=== PATIENT | male | born 1950 | race Caucasian/White ===

== ENCOUNTER 2020-12-31 07:55 | Emergency (ER) | payer OTHER ==
[2020-12-31 08:32] LABS: Absolute Lymphocytes (CBC) 1.2 K/uL (0.7-4.9); Basophils % 0.2 % (0-1.3); Lymphocytes % 6.7 % (15.3-44.8); MPV 8.3 fL (7.6-11.3); RBC Red Blood Cell Count 3.51 M/uL (4.33-5.43)
[2020-12-31] MEDS ORDERED: ONDANSETRON 4 MG/2 ML VIAL ONE (08:37)
[2020-12-31] MEDS ORDERED: NA CHLORIDE 0.9% 2,000 ML ONE (08:37)
[2020-12-31] MEDS ORDERED: MORPHINE 4 MG/ML SYR ONE (08:37)
[2020-12-31 08:47] LABS: BUN Blood Urea Nitrogen 9 mg/dL (7-18); Bicarbonate 20 mmol/L (21-32); Creatine Phosphokinase 36 U/L (39-308); Glucose Level 322 mg/dL (74-106); NT PRO-BNP 1267 pg/mL (<125); Potassium 4.1 mmol/L (3.5-5.1); Sodium Level 133 mmol/L (136-145); Troponin (Emerg Dept Use Only) < 0.02 ng/mL (0.0-0.045)
[2020-12-31 08:48] LABS: CKMB Creatine Kinase MB < 1.0 ng/mL (1.0-3.6)
[2020-12-31 08:52] LABS: Protime INR 1.56
[2020-12-31] MEDS ORDERED: carvediloL 6.25 MG TAB ONE (09:13)
[2020-12-31] MEDS ORDERED: MAGNESIUM SULFATE 1 gm IVPB 1 GM/100 ML BAG IV ONE (09:28)
[2020-12-31 10:01] LABS: Urine Blood 1+ (Negative); Urine Glucose Negative (Negative); Urine Protein 3+ (Negative); Urine pH 8.5 (5.0-7.0)
[2020-12-31] MEDS ORDERED: NA CHLORIDE 0.9% 100 ML ONE (10:04)
[2020-12-31] MEDS ORDERED: PIPERACIL/TAZO 3.375 GM VIAL IV ONE (10:04)
--- NOTE | 2020-12-31 10:06 | RAD REPORT ---
EXAM DESCRIPTION: [place] Single View12/31/2020 8:43 am CLINICAL HISTORY: Shortness of breath COMPARISON: 2017 FINDINGS: Large right lung mass with atelectasis. Right rib bone destruction. Left lung appears clear
--- NOTE | 2020-12-31 10:06 | RAD REPORT ---
EXAM DESCRIPTION: CT - Chest For Pe Angio - 12/31/2020 9:17 am CLINICAL HISTORY: Chest pain COMPARISON: None. TECHNIQUE: Dynamically enhanced axial 3 mm thick images of the chest were obtained during administra tion of <100> mL Isovue 370 IV contrast. Coronal and oblique reconstruction images were generated and reviewed. Exam utilizes a protocol for optimal evaluation of pulmonary arterial tree. Maximum intensity projections 3D imaging was utilized All CT scans are performed using dose optimization technique as appropriate and may include automated exposure control or mA/KV adjustment according to patient size. FINDINGS: A pulmonary embolus is not seen. A thoracic aortic aneurysm is not noted. Small to moderate right pleural effusion Large mass occupies the mid and lower right lung. The mass extends into the posterior mediastinum and right hilum. Right rib destruction is noted. The mass extends through the right lateral chest wall. Right lower lobe bronchus is occluded resulting in atelectasis. Right pulmonary arteries are encased by the mass. COPD IMPRESSION: Negative for a pulmonary embolism. Large mass occupies the mid and lower right lung. The mass extends into the posterior mediastinum and right hilum. Right rib destruction is noted. The mass extends through the right lateral chest wall. Right lower lobe bronchus is occluded resulting in atelectasis.
[2020-12-31] MEDS ORDERED: NA CHLORIDE 0.9% 1,000 ML ONE ×2 (10:30→12:51)
[2020-12-31 10:51] LABS: Anisocytosis 1+; Blood Morphology Comment NOTED (NOT SEEN); Macrocytosis SLIGHT; Platelet Estimate INCR; White Blood Cell Scan OK (OK)
[2020-12-31 10:59] LABS: Urine Bacteria <20 /HPF (NONE SEEN); Urine Mucus 2+ /HPF (NONE SEEN); Urine Urothelial Cells <5 /HPF (NONE SEEN)
[2020-12-31] MEDS ORDERED: AMIODARONE HCL 150 MG in D5W 100 ML IV SCH (11:45)
[2020-12-31] MEDS ORDERED: AMIODARONE HCL 900 MG in Dextrose 5%-Water 482 ML IV SCH (12:00)
--- NOTE | 2020-12-31 14:07 | EDPHYS ---
Physician Documentation [facility] Name: Jose Doherty Age: 70 yrs Sex: Male : 1950 Arrival Date: 12/31/2020 Time: 07:57 Bed 4 Private MD: ED Physician Keagan Lizama HPI: 12/31 08:00 This 70 yrs old Male presents to ER via Unassigned with complaints of Chest rn pain and shortness of breath. 08:00 The patient has shortness of breath at rest. Onset: The symptoms/episode began/occurred rn this morning. Duration: The symptoms are continuous. The patient's shortness of breath is aggravated by coughing, supine position, talking, is alleviated by nothing. Associated signs and symptoms: Pertinent positives: chest pain, non-productive cough, Pertinent negatives: fever, hemoptysis, loss of consciousness. Severity of symptoms: At their worst the symptoms were moderate in the emergency department the symptoms are unchanged. The patient has experienced similar episodes in the past. It is unknown whether or not the patient has recently seen a physician. Per EMS report patient with metastatic lung cancer, family states was considering putting him on hospice beginning tomorrow, increased shortness of breath and chest pain that began this morning so called 911. Patient reports pain feels like his pain that he has been having with the cancer only a little worse. No fever. No history of DVT or PE. Is seen at [facility].. Historical: - Allergies: 08:57 No Known Allergies; ll1 - PMHx: 08:20 lung CA with mets; ll1 08:57 Anemia; hypomagnesemia; Hypothyroidism; Sleep apnea; ll1 08:59 Diabetes mellitus; ll1 - Immunization history:: Adult Immunizations up to date. - Social history:: Smoking status: Patient/guardian denies using tobacco. - Family history:: not pertinent. - Hospitalizations: : No recent hospitalization is reported. ROS: 08:00 Constitutional: Negative for fever, chills Eyes: Negative for injury, pain, redness, rn and discharge, Neck: Negative for injury, pain, and swelling, Cardiovascular: Positive for chest pain Respiratory: Positive for shortness of breath and cough Abdomen/GI: Negative for abdominal pain, nausea, vomiting, diarrhea, and constipation, Back: Negative for injury and pain, : Patient states feels like needs to urinate but cannot MS/Extremity: Negative for injury and deformity, Skin: Negative for injury, rash, and discoloration, Neuro: Positive for generalized weakness 08:00 All other systems are negative. Exam: 08:00 Constitutional: Thin male, cachectic, tachypneic Head/Face: Normocephalic, rn atraumatic. Eyes: Sunken eyes. Periorbital areas with no swelling, redness, or edema. ENT: Dry mucous membranes Cardiovascular: Tachycardic, irregular Respiratory: Moderate tachypnea with diminished breath sounds at bases Abdomen/GI: Soft, nontender, scaphoid Skin: Warm, dry MS/ Extremity: Pulses equal, no cyanosis. Neuro: Awake, somnolent, GCS 15, oriented to person place and situation. Moves all 4 extremities. 08:04 ECG was reviewed by the Attending Physician. rn Vital Signs: 08:23 BP 142 / 127; Pulse 173; Resp 21; Pain 10/10; ll1 08:46 Temp 96.3(R); ap3 08:47 Pulse Ox 100% ; ll1 08:57 Weight 70.31 kg; Height 5 ft. 9 in. (175.26 cm); ll1 08:59 BP 165 / 134; Pulse 166; Resp 22; ll1 09:30 BP 84 / 56; Pulse 161; Resp 22; Pulse Ox 100% on 3.5 lpm NC; ll1 09:32 BP 100 / 62; ll1 09:42 BP 82 / 57; ll1 09:53 BP 90 / 53; Pulse 157; Resp 20; Pulse Ox 96% on 3.5 lpm NC; ll1 10:16 BP 98 / 58; Pulse 146; Resp 20; Pulse Ox 98% ; ll1 10:20 Temp 96.4(TE); ll1 10:25 BP 80 / 63; Pulse 145; Resp 19; Pulse Ox 100% on 3.5 lpm NC; ll1 10:35 BP 99 / 65; Pulse 164; Resp 19; Pulse Ox 100% ; ll1 10:48 BP 101 / 70; Pulse 153; Resp 18; Pulse Ox 99% on 3.5 lpm NC; ll1 11:08 BP 95 / 72; Pulse 163; Resp 18; Pulse Ox 100% on 3.5 lpm NC; ll1 11:12 Temp 96.3(TE); ll1 11:43 BP 109 / 85; Pulse 163; Resp 17; ll1 11:59 Temp 96.6(TE); ll1 12:00 BP 122 / 80; Pulse 116; Resp 18; Pulse Ox 100% ; ll1 13:13 BP 119 / 82; Pulse 111; Resp 21; Pulse Ox 100% on 3.5 lpm NC; ll1 13:45 BP 121 / 82; Pulse 110; Resp 18; Pulse Ox 100% on 2 lpm NC; ll1 13:50 Pulse 109; Resp 17; Temp 97.4; Pulse Ox 100% ; ll1 14:32 BP 125 / 90; Pulse 113; Resp 18; Pulse Ox 100% ; ll1 14:49 BP 112 / 70; Pulse 114; Resp 17; Pulse Ox 100% ; ll1 15:29 BP 127 / 87; Pulse 111; Resp 17; Pulse Ox 100% ; ll1 16:20 BP 116 / 79; Pulse 113; Resp 17; Temp 97.3; Pulse Ox 100% on 3.5 lpm NC; Pain 4/10; ll1 16:32 BP 129 / 87; Resp 17; ll1 08:57 Body Mass Index 22.89 (70.31 kg, 175.26 cm) [facility] 09:42 Dr. Lizama informed of low BP. IV fluids and magnesium infusing. [facility] 12:00 Rhythm converted to sinus tach. Dr. Lizama informed. EKG done. [facility] MDM: 07:57 Patient medically screened. rn 08:32 ED course: Family member not sure if has a history of atrial fibrillation, but states rn recently taken off of his amlodipine as well as his Coreg due to low blood pressure. Patient is oriented and states he wishes to remain full code, family without any documentation stating otherwise. 09:47 ED course: Patient feels improved, increased energy and more movement. rn 11:29 ED course: Patient persistently tachycardic, borderline blood pressure, most of visit rn has been hypotensive, not enough room for rate control using typical drugs, maintains heart rate 150s 160s, overall feels better, but needs rate control will try amiodarone given borderline blood pressure.. 12:03 ED course: Prior to administration of amiodarone, patient attempted to reposition in rn bed and cardioverted back to sinus rhythm. Now sinus tachycardia with improved blood pressure. Appears much better.. 12:22 ED course: Family requests transfer to [facility] given all his doctors rn are there and his oncologist there. Will attempt transfer, if unable to will admit here. 14:04 Differential diagnosis: CHF exacerbation, Myocardial Infarction pneumonia, Pneumothorax rn pulmonary edema, Pulmonary Embolism New onset atrial fibrillation, dehydration. Data reviewed: vital signs, nurses notes, lab test result(s), EKG, radiologic studies, CT scan, plain films, and as a result, I will admit patient. Data interpreted: athletic monitor: rate is 109 beats/min, rhythm is sinus tachycardia, with no ectopy, Interpretation: tachycardia, Pulse oximetry: on 2L(s) per nasal canula, is 100 %. Interpretation: acceptable. Counseling: I had a detailed discussion with the patient and/or guardian regarding: the historical points, exam findings, and any diagnostic results supporting the discharge/admit diagnosis, lab results, radiology results, the need for further work-up and treatment in the hospital. Response to treatment: the patient's symptoms have markedly improved after treatment, and as a result, I will admit patient. Admission orders: after a detailed discussion of the patient's condition and case, the admit orders are written by me. ED course: Patient markedly improved. Family no patient aware of history of atrial fibrillation. Will admit for further care. Patient very dehydrated. Attempted transfer back to [facility] as well as [facility] for continuation of care and there are no beds available. Will admit here.. 14:44 ED course: Transfer center unable to get Dr. Esquivel on phone for doc-to-doc, but states rn accepts transfer. . 12/31 07:59 Order name: BMP rn 12/31 07:59 Order name: Blood Culture Adult (2) rn 12/31 07:59 Order name: CBC with Diff; Complete Time: 12:25 rn 12/31 07:59 Order name: CPK; Complete Time: 08:49 rn 12/31 07:59 Order name: Ckmb; Complete Time: 08:49 rn 12/31 07:59 Order name: NT PRO-BNP; Complete Time: 08:49 rn 12/31 07:59 Order name: PT-INR; Complete Time: 10:03 rn 12/31 07:59 Order name: Ptt, Activated; Complete Time: 10:03 rn 12/31 07:59 Order name: Troponin (emerg Dept Use Only); Complete Time: 08:49 rn 12/31 07:59 Order name: Lactate; Complete Time: 10:03 rn 12/31 07:59 Order name: Procalcitonin; Complete Time: 10:03 rn 12/31 08:00 Order name: Basic Metabolic Panel; Complete Time: 08:49 EDMS 12/31 08:03 Order name: Urine Culture rn 12/31 07:59 Order name: XRAY CXR (1 view); Complete Time: 10:11 rn 12/31 08:03 Order name: Urine Microscopic Only; Complete Time: 12:25 rn 12/31 08:49 Order name: CT Chest For PE Angio; Complete Time: 10:11 rn 12/31 09:22 Order name: SARS-COV-2 RT PCR; Complete Time: 10:03 EDMS 12/31 10:01 Order name: Urine Dipstick-Ancillary; Complete Time: 10:03 EDMS 12/31 10:51 Order name: CBC Smear Scan; Complete Time: 12:25 EDMS 12/31 12:05 Order name: Lactate Sepsis 2 HR Follow-up; Complete Time: 12:25 EDMS 12/31 07:59 Order name: EKG; Complete Time: 08:00 rn 12/31 07:59 Order name: Cardiac monitoring; Complete Time: 08:09 rn 12/31 07:59 Order name: EKG - Nurse/Tech; Complete Time: 08:09 rn 12/31 07:59 Order name: IV Saline Lock; Complete Time: 08:09 rn 12/31 07:59 Order name: Labs collected and sent; Complete Time: 08:09 rn 12/31 07:59 Order name: O2 Per Protocol; Complete Time: 08:09 rn 12/31 07:59 Order name: O2 Sat Monitoring; Complete Time: 08:09 rn 12/31 08:03 Order name: Urine Dipstick-Ancillary (obtain specimen); Complete Time: 08:08 rn 12/31 08:18 Order name: Glucose Level; Complete Time: 10:22 rn 12/31 08:18 Order name: Munoz; Complete Time: 08:21 rn 12/31 08:48 Order name: Faraz Donahue; Complete Time: 08:56 rn EC:04 Rate is 178 beats/min. Rhythm is irregularly irregular. QRS is positive in lead I and rn negative in lead aVF. QRS interval is normal. QT interval is normal. No Q waves. T waves are Normal. No ST changes noted. Clinical impression: Atrial Fibrillation. Interpreted by me. Reviewed by me. Administered Medications: 08:25 Drug: NS 0.9% 1000 ml Route: IV; Rate: 1000 ml; Site: left antecubital; ll1 10:22 Follow up: Response: No adverse reaction; IV Status: Completed infusion; IV Intake: ll1 1000ml 08:25 Drug: morphine 4 mg {Note: rass -1.} Route: IVP; Site: left antecubital; ll1 09:30 Follow up: Response: No adverse reaction [facility] 08:25 Drug: Zofran (Ondansetron) 4 mg Route: IVP; Site: left antecubital; ll1 10:22 Follow up: Response: No adverse reaction [facility] 08:55 Drug: Coreg (carvedilol) 6.25 mg Route: PO; ap3 10:22 Follow up: Response: No adverse reaction [facility] 08:56 Drug: NS 0.9% 1000 ml Route: IV; Rate: 1000 ml; Site: right antecubital; ap3 10:23 Follow up: Response: No adverse reaction; IV Status: Completed infusion; IV Intake: ll1 1000ml 09:29 Drug: Magnesium Sulfate 1 grams Route: IVPB; Infused Over: 1 hrs; Site: left ll1 antecubital; 10:22 Follow up: Response: No adverse reaction; IV Status: Completed infusion; IV Intake: ll1 100ml 09:53 Drug: Zosyn (piperacillin-tazobactam) 3.375 grams Route: IVPB; Infused Over: 60 mins; ll1 Site: right antecubital; 11:42 Follow up: Response: No adverse reaction; IV Status: Completed infusion; IV Intake: ll1 100ml 10:15 Drug: NS 0.9% 1000 ml Route: IV; Rate: 1000 ml; Site: left antecubital; ll1 11:42 Follow up: Response: No adverse reaction; IV Status: Completed infusion; IV Intake: ll1 1000ml 12:11 Not Given (convertedd): amiodarone 150 mg 100 ml IVPB once over 10 mins; (mix in D5W) ll1 12:11 Not Given (convertedd): amiodarone 900 mg, D5W 500 ml IVPB at 1 mg/min continuous; for ll1 6 hrs, then change to 0.5 mg/min Disposition: 14:04 Critical Care:. rn Disposition Summary: 12/31/20 14:43 Transfer Ordered Transfer Location: [facility] rn Reason: Higher level of care rn Condition: Stable(12/31/20 14:43) rn Problem: new(12/31/20 14:43) rn Symptoms: have improved(12/31/20 14:43) rn Accepting Physician: Dr. Esquivel(12/31/20 16:32) ll1 Diagnosis - Persistent atrial fibrillation(12/31/20 14:43) rn - Chest pain, unspecified(12/31/20 14:43) rn - Dehydration(12/31/20 14:43) rn Forms: - Medication Reconciliation Form rn - SBAR form burner shaft time excluding procedures: 14:04 Critical care time: Bedside Care: 35 minutes, Family Intervention: 5 minutes. Total rn time: 40 minutes Signatures: Dispatcher [employer] EDMS Keagan Lizama MD MD rn Prokisch, Amanda, RN RN [email or web address] Nikki Cuevas, RN RN ll1 Corrections: (The following items were deleted from the chart) 08:30 08:00 CORONAVIRUS+ ordered. EDGA EDMS 08:59 08:20 Allergies: No Known Allergies; ll1 ll1 08:59 08:57 Allergies: anemia; ll1 ll1 14:43 14:07 Observation rn rn 14:43 14:07 Sonny Agee rn rn 14:43 14:07 Telemetry/MedSurg (observation) rn rn 14:43 14:07 Stable rn rn 14:43 14:07 new rn rn 14:43 14:07 have improved rn rn 14:43 14:07 Standard rn rn 14:43 14:07 rn rn 14:43 14:07 Persistent atrial fibrillation rn rn 14:43 14:07 Chest pain, unspecified rn rn 14:43 14:07 Dehydration rn rn 16:32 14:43 Dr. Esquivel rn ll1
--- NOTE | 2020-12-31 14:07 | ER ---
Nurse's Notes [facility] Name: Jose Doherty Age: 70 yrs Sex: Male : 1950 Arrival Date: 12/31/2020 Time: 07:57 Bed 4 Private MD: Diagnosis: Persistent atrial fibrillation;Chest pain, unspecified;Dehydration Presentation: 12/31 08:23 Chief complaint: Patient states: SOB for a few days. Has pain all over. Reports unable ll1 to urinate and bladder pain. AMS off/on. Reports weakness with fall yesterday. EMS states: 95% with long O2 tubing, BP low (unable to obtain). Lung CA with mets. Was going to be put on hospice this week. HR 170's. Coronavirus screen: Client denies travel out of the [place] in the last 14 days. difficulty breathing, shortness of breath. Ebola Screen: Patient denies travel to an Ebola-affected area in the 21 days before illness onset. Initial Sepsis Screen: Does the patient meet any 2 criteria? RR > 20 per min. Systolic BP < 90 mmHg. Altered Mental Status. HR > 90 bpm. Yes Does the patient have a suspected source of infection? No. Patient's initial sepsis screen is negative. Risk Assessment: Do you want to hurt yourself or someone else? Patient reports no desire to harm self or others. Onset of symptoms was December 28, 2020. 08:23 Method Of Arrival: EMS ll1 08:23 Acuity: DEANNA 2 ll1 Historical: - Allergies: 08:57 No Known Allergies; ll1 - PMHx: 08:20 lung CA with mets; ll1 08:57 Anemia; hypomagnesemia; Hypothyroidism; Sleep apnea; ll1 08:59 Diabetes mellitus; ll1 - Immunization history:: Adult Immunizations up to date. - Social history:: Smoking status: Patient/guardian denies using tobacco. - Family history:: not pertinent. - Hospitalizations: : No recent hospitalization is reported. Screenin:26 Abuse screen: Denies threats or abuse. Nutritional screening: No deficits noted. ll1 Tuberculosis screening: No symptoms or risk factors identified. Fall Risk Fall in past 12 months (25 points). Secondary diagnosis (15 points) impaired mobility, IV access (20 points). Ambulatory Aid- None/Bed Rest/Nurse Assist (0 pts). Gait- Weak (10 pts.). Mental Status- Overestimates/Forgets Limitations (15 pts.). Total Leonard Fall Scale indicates High Risk Score (45 or more points). Fall prevention measures have been instituted. Side Rails Up X 2 Placed Close to Nursing Station 1:1 Attendant Assigned Frequent Obs/Assessments Occuring Family Present and informed to notify staff if the need to leave the bedside As available patient and family educated on Fall Prevention Program and Strategies. Assessment: 08:27 General: Appears ill, Behavior is cooperative, appropriate for age, listless. Pain: ll1 Complains of pain in all over Quality of pain is described as aching, Aggravated by increased activity. Neuro: Level of Consciousness is alert, obeys commands, lethargic, Oriented to person, Hot Mill Supervisor are weak bilaterally Weakness Reports weakness. Cardiovascular: Heart tones S1 S2 present Capillary refill < 3 seconds Clubbing of nail beds is absent Patient's skin is warm and dry. Pulses are all present. Edema is 2+ to left ankle, left foot, right ankle and right foot Rhythm is atrial fibrillation with rapid ventricular response. Respiratory: Reports shortness of breath at rest Airway is patent Trachea midline Respiratory effort is even, labored, Respiratory pattern is symmetrical, tachypnea Breath sounds are diminished bilaterally. Onset: The symptoms/episode began/occurred 3 days, the patient has moderate shortness of breath. GI: No deficits noted. Abdomen is flat, Bowel sounds present X 4 quads. Abd is soft and non tender X 4 quads. : Urine is clear, Reports inability to void. Musculoskeletal: Circulation, motion, and sensation intact. Capillary refill < 3 seconds, Range of motion: intact in all extremities, Swelling present in right leg and left leg Reports. 09:30 Reassessment: No changes from previously documented assessment. Patient and/or family ll1 updated on plan of care and expected duration. Pain level reassessed. 10:30 Reassessment: No changes from previously documented assessment. Patient and/or family ll1 updated on plan of care and expected duration. Pain level reassessed. Patient is alert, oriented x 3, equal unlabored respirations, skin warm/dry/pink. 11:30 Reassessment: No changes from previously documented assessment. Patient and/or family ll1 updated on plan of care and expected duration. Pain level reassessed. 12:30 Reassessment: No changes from previously documented assessment. Patient and/or family ll1 updated on plan of care and expected duration. Pain level reassessed. Patient states feeling better. 13:30 Reassessment: No changes from previously documented assessment. Patient and/or family ll1 updated on plan of care and expected duration. Pain level reassessed. Resting, eyes closed. 14:31 Reassessment: No changes from previously documented assessment. Patient and/or family ll1 updated on plan of care and expected duration. Pain level reassessed. admission doctor at bedside. 15:31 Reassessment: No changes from previously documented assessment. Patient and/or family ll1 updated on plan of care and expected duration. Pain level reassessed. Patient is alert, oriented x 3, equal unlabored respirations, skin warm/dry/pink. Patient states feeling better. Patient states symptoms have improved. Vital Signs: 08:23 BP 142 / 127; Pulse 173; Resp 21; Pain 10/10; ll1 08:46 Temp 96.3(R); ap3 08:47 Pulse Ox 100% ; ll1 08:57 Weight 70.31 kg; Height 5 ft. 9 in. (175.26 cm); ll1 08:59 BP 165 / 134; Pulse 166; Resp 22; ll1 09:30 BP 84 / 56; Pulse 161; Resp 22; Pulse Ox 100% on 3.5 lpm NC; ll1 09:32 BP 100 / 62; ll1 09:42 BP 82 / 57; ll1 09:53 BP 90 / 53; Pulse 157; Resp 20; Pulse Ox 96% on 3.5 lpm NC; ll1 10:16 BP 98 / 58; Pulse 146; Resp 20; Pulse Ox 98% ; ll1 10:20 Temp 96.4(TE); ll1 10:25 BP 80 / 63; Pulse 145; Resp 19; Pulse Ox 100% on 3.5 lpm NC; ll1 10:35 BP 99 / 65; Pulse 164; Resp 19; Pulse Ox 100% ; ll1 10:48 BP 101 / 70; Pulse 153; Resp 18; Pulse Ox 99% on 3.5 lpm NC; ll1 11:08 BP 95 / 72; Pulse 163; Resp 18; Pulse Ox 100% on 3.5 lpm NC; ll1 11:12 Temp 96.3(TE); ll1 11:43 BP 109 / 85; Pulse 163; Resp 17; ll1 11:59 Temp 96.6(TE); ll1 12:00 BP 122 / 80; Pulse 116; Resp 18; Pulse Ox 100% ; ll1 13:13 BP 119 / 82; Pulse 111; Resp 21; Pulse Ox 100% on 3.5 lpm NC; ll1 13:45 BP 121 / 82; Pulse 110; Resp 18; Pulse Ox 100% on 2 lpm NC; ll1 13:50 Pulse 109; Resp 17; Temp 97.4; Pulse Ox 100% ; ll1 14:32 BP 125 / 90; Pulse 113; Resp 18; Pulse Ox 100% ; ll1 14:49 BP 112 / 70; Pulse 114; Resp 17; Pulse Ox 100% ; ll1 15:29 BP 127 / 87; Pulse 111; Resp 17; Pulse Ox 100% ; ll1 16:20 BP 116 / 79; Pulse 113; Resp 17; Temp 97.3; Pulse Ox 100% on 3.5 lpm NC; Pain 4/10; ll1 16:32 BP 129 / 87; Resp 17; ll1 08:57 Body Mass Index 22.89 (70.31 kg, 175.26 cm) ll1 09:42 Dr. Lizama informed of low BP. IV fluids and magnesium infusing. ll1 12:00 Rhythm converted to sinus tach. Dr. Lizama informed. EKG done. ll1 ED Course: 07:57 Patient arrived in ED. rn 07:57 Keagan Lizama MD is Attending Physician. rn 08:00 Inserted saline lock: 20 gauge in left antecubital area, using aseptic technique. Blood ll1 collected. 08:08 Nikki Cuevas, RN is Primary Nurse. ll1 08:15 Inserted saline lock: 20 gauge in right antecubital area, using aseptic technique. ll1 Blood collected. 08:26 Triage completed. ll1 08:26 Arm band placed on. ll1 08:26 Patient has correct armband on for positive identification. Bed in low position. Call ll1 light in reach. Side rails up X2. quality assurance monitor final on. Pulse ox on. NIBP on. 08:43 XRAY CXR (1 view) In Process Unspecified. EDMS 09:17 CT Chest For PE Angio In Process Unspecified. EDMS 10:14 Urine Culture Sent. cs9 10:14 Urine Microscopic Only Sent. cs9 12:01 Urine collected: Munoz catheter specimen, cloudy, EKG done, by ED staff, reviewed by Josette Lizama MD COVID swab sent to lab. 12:02 BMP Sent. [facility] 12:02 Blood Culture Adult (2) Sent. [facility] 13:34 initiated transfer to [facility], pt was declined due to no beds at [facility] or [facility]. 14:06 Sonny Agee MD is Hospitalizing Provider. rn 15:18 pt accepted in transfer to [facility], admin approval given by Rusty Red. Pt accepted by Dr Price. 15:56 No provider procedures requiring assistance completed. Patient transferred, IV remains ll1 in place. Administered Medications: 08:25 Drug: NS 0.9% 1000 ml Route: IV; Rate: 1000 ml; Site: left antecubital; ll1 10:22 Follow up: Response: No adverse reaction; IV Status: Completed infusion; IV Intake: ll1 1000ml 08:25 Drug: morphine 4 mg {Note: rass -1.} Route: IVP; Site: left antecubital; ll1 09:30 Follow up: Response: No adverse reaction ll1 08:25 Drug: Zofran (Ondansetron) 4 mg Route: IVP; Site: left antecubital; ll1 10:22 Follow up: Response: No adverse reaction ll1 08:55 Drug: Coreg (carvedilol) 6.25 mg Route: PO; ap3 10:22 Follow up: Response: No adverse reaction 1 08:56 Drug: NS 0.9% 1000 ml Route: IV; Rate: 1000 ml; Site: right antecubital; ap3 10:23 Follow up: Response: No adverse reaction; IV Status: Completed infusion; IV Intake: ll1 1000ml 09:29 Drug: Magnesium Sulfate 1 grams Route: IVPB; Infused Over: 1 hrs; Site: left ll1 antecubital; 10:22 Follow up: Response: No adverse reaction; IV Status: Completed infusion; IV Intake: ll1 100ml 09:53 Drug: Zosyn (piperacillin-tazobactam) 3.375 grams Route: IVPB; Infused Over: 60 mins; ll1 Site: right antecubital; 11:42 Follow up: Response: No adverse reaction; IV Status: Completed infusion; IV Intake: ll1 100ml 10:15 Drug: NS 0.9% 1000 ml Route: IV; Rate: 1000 ml; Site: left antecubital; ll1 11:42 Follow up: Response: No adverse reaction; IV Status: Completed infusion; IV Intake: ll1 1000ml 12:11 Not Given (convertedd): amiodarone 150 mg 100 ml IVPB once over 10 mins; (mix in D5W) ll1 12:11 Not Given (convertedd): amiodarone 900 mg, D5W 500 ml IVPB at 1 mg/min continuous; for ll1 6 hrs, then change to 0.5 mg/min Intake: 10:22 IV: 1000ml; Total: 1000ml. ll1 10:22 IV: 100ml; Total: 1100ml. ll1 10:23 IV: 1000ml; Total: 2100ml. ll1 11:42 IV: 100ml; Total: 2200ml. ll1 11:42 IV: 1000ml; Total: 3200ml. ll1 Outcome: 14:07 Decision to Hospitalize by Provider. rn 14:43 ER care complete, transfer ordered by . rn 15:55 Transferred by ground EMS to [facility], Transfer form completed. 1 15:55 Transferred Note: Report given to Ulises Almendarez RN at [facility]. 15:55 Condition: stable 15:55 Instructed on the need for transfer. 16:32 Patient left the ED. 1 Signatures: Dispatcher [employer] EDMS Elizabeth Kasper Roman, MD MD rn Martinez, Maria Neha Ferrari RN RN ap3 Nikki Cuevas RN RN ll1 Janice Cortes Corrections: (The following items were deleted from the chart) 08:30 08:13 CORONAVIRUS+MR.LABMARK ANTHONY drawn and sent. [facility] EDMA 08:59 08:20 Allergies: No Known Allergies; 1 ll1 08:59 08:57 Allergies: anemia; 1 ll1
[2020-12-31 16:56] VITALS: O2SAT 100
[2020-12-31 17:09] VITALS: TEMP 97.3
[2020-12-31 17:10] VITALS: BP 129/87
--- NOTE | 2021-01-01 18:11 | EKG ---
Test Date: 2020-12-31 Test Time: 11:57:34 Concrete Float Maker: ALFREDO MEASUREMENT RESULTS: Intervals: Rate: 115 ND: 146 QRSD: 94 QT: 362 QTc: 500 [place]: P: 57 ND: 146 QRS: -56 T: 63 INTERPRETIVE STATEMENTS: Sinus tachycardia Possible Left atrial enlargement Left anterior fascicular block Abnormal ECG Compared to ECG 12/31/2020 07:59:14 Atrial fibrillation no longer present ST (T wave) deviation no longer present Electronically Signed On 01-01-21 18:06:09 CDT by Phillip Lei
--- NOTE | 2021-01-01 18:13 | EKG ---
Test Date: 2020-12-31 Test Time: 07:59:14 Foam Fabricator: CHIDI MEASUREMENT RESULTS: Intervals: Rate: 178 [place]: QRSD: 90 QT: 278 QTc: 478 [place]: P: [place]: QRS: -70 T: 95 INTERPRETIVE STATEMENTS: Atrial fibrillation with rapid ventricular response Left anterior fascicular block Nonspecific ST and T wave abnormality, probably digitalis effect Abnormal ECG Compared to ECG 12/06/1998 05:16:00 Left anterior fascicular block now present ST (T wave) deviation now present Sinus rhythm no longer present T-wave abnormality no longer present Possible ischemia no longer present Electronically Signed On 01-01-21 18:06:16 CDT by Pihllip Lei
== END 2020-12-31 16:32 | disposition short-term general hospital (02) ==
LOC: ER 07:55
DX: I48.19 Other persistent atrial fibrillation (principal); E86.0 Dehydration; C34.90 Malignant neoplasm of unspecified part of unspecified bronchus or lung; E11.9 Type 2 diabetes mellitus without complications; Z20.822 Contact with and (suspected) exposure to COVID-19
CPT/HCPCS: 96365; 96361; 96368; 93005 ×2; 87040 ×2; 87088; 85025; 87086; 80048; 36415; 82550; 85610; 83605 ×2; 85730; 84484; 82553; 84145; 83880; 71275; 71045; 96375; 99285; 96366; U0003; Q9967; J2543; J3475; J7030 ×3; J2405; 81003; 81015; J0282; J7060